=== PATIENT | female | born 1950 | race Caucasian/White ===

== ENCOUNTER 2018-01-09 19:15 | Emergency (ER) | payer OTHER, MEDICARE ==
[2018-01-09 19:33] VITALS: BP 164/78; PULSE 83; TEMP 97.9; BMI 34.3
--- NOTE | 2018-01-09 19:41 | PDOC ---
History of Present Illness - General Chief Complaint: CVA/TIA Stated Complaint: NUMBNESS Time Seen by Provider: 01/09/18 19:35 - History of Present Illness Initial Comments: 01/09/18 20:45 The patient is a 67 year old female with a history of breast ca who presents for evaluation of Lightheadedness, palpitations, and tingling in her upper extremities. The patient reports onset of lightheadedness, palpitations and tingling in her hands 1 hour prior to presentation. The patient reports that she did not "feel right" prompting her presentation to the ED for further evaluation. She otherwise denies fevers, chills, headache, SOB, chest pain, nausea, vomiting, abdominal pain, weakness, numbness, or changes with urination or bowel movements. Past History - Past Medical History Allergies/Adverse Reactions: Allergies Allergy/AdvReac Type Severity Reaction Status Date / Time No Known Allergies Allergy Verified 01/09/18 22:52 Home Medications: Ambulatory Orders NK [No Known Home Medication] 01/09/18 - Suicide/Smoking/Psychosocial Hx Smoking History: Never smoked Have you smoked in the past 12 months: No Information on smoking cessation initiated: No Hx Alcohol Use: No Drug/Substance Use Hx: No Review of Systems - Review of Systems Comments:: 01/09/18 21:07 Constitutional: No fevers, chills, fatigue, malaise HEENT: No Rhinorrhea, nasal congestion, visual changes Cardiovascular: Lightheadedness. Palpitations. No chest pain, syncope, Respiratory: No Cough, SOB, Hemoptysis, Gastrointestinal: No Abdominal pain, Nausea, Vomiting, Constipation, Diarrhea, Melena Genitourinary: No Dysuria, Frequency, Urgency, Hesitancy, Hematuria, Flank pain Musculoskeletal: No Myalgia, arthralgia Skin: No rashes, itching, bruising, pallor Neurologic: Tingling. No Headache, Dizziness, Numbness, Weakness, or Tingling Psychiatric: No Hallucinations. No SI or HI *Physical Exam - Vital Signs Last Vital Signs Temp Pulse Resp BP Pulse Ox 97.9 F 83 18 164/78 99 01/09/18 19:31 01/09/18 19:31 01/09/18 19:31 01/09/18 19:31 01/09/18 19:31 - Physical Exam Comments: 01/09/18 21:09 General Appearance: Nourished. No Apparent Distress HEENT: EOMI, HEIDI. No Pharyngeal Erythema, Tonsillar Exudate, Tonsillar Erythema Neck: No Cervical Lymphadenopathy Respiratory/Chest: Lungs Clear, Normal Breath Sounds. No Crackles, Rales, Rhonchi, Wheezing Cardiovascular: Regular Rhythm, Regular Rate. No Murmur, Gallops, Rubs Gastrointestinal/Abdominal: Normal Bowel Sounds, Soft. No Guarding, Rebound, Tenderness Musculoskeletal: No CVA Tenderness Extremity: Normal Capillary Refill Integumentary: Normal Color, Dry, Warm Neurologic: access nurse II-XII NML intact, Fully Oriented, Alert, Normal Mood/Affect, Normal Response, Motor Strength 5/5. Normal Finger to Nose and Heel to [place] Heart Score/ECG Review #1 ECG reviewed & interpreted by me at: 21:10 General ECG Interpretation: Sinus Rhythm, Normal Rate, Normal Intervals, No acute ischemic changes ED Treatment Course - LABORATORY CBC & Chemistry Diagram: 01/09/18 20:18 01/09/18 20:18 Medical Decision Making - Medical Decision Making 01/09/18 21:10 The patient is a 67 year old female with a history of breast ca who presents for evaluation of Lightheadedness, palpitations, and tingling in her upper extremities. Differential includes but is not limited to: Intracranial process , PE, Arrhythmia, Infectious, Metabolic derangement. Given the patient's history and physical exam, we will obtain a cbc, cmp, head CT, chest CTA to evaluate further for possible etiologies. We will treat with versed here in the ED given the patient's anxiety in enclosed spaces to obtain CT scanning. We will continue to monitor and reassess in the meantime. 01/10/18 00:34 CBC, cmp are unremarkable. head ct and chest cta are unremarkable. Given the patient's symptoms, we recommend admission for neurology evaluation. We discussed the results and plan with the patient who voiced that her symptoms have significantly improved and she would like to leave AMA. We discussed the risks of leaving AMA including but not limited to and permanent disability. The patient continued to wish to leave AMA. We discussed the benefits of admission and the patient continue to wish to leave AMA. The patient signed the AMA form and stated that she would return should she experience any new symptoms and will follow up with a neurologist and her primary care provider. *DC/Admit/Observation/Transfer Diagnosis at time of Disposition: Palpitations, Tingling in extremities, Lightheadedness - Discharge Dispostion Disposition: AGAINST MEDICAL ADVICE Condition at time of disposition: Stable Decision to Admit order: No - Referrals Referrals: Aguilar Robledo MD [Staff Physician] - - Patient Instructions Printed Discharge Instructions: DI for Palpitations Additional Instructions: Please return to the ER if you experience concerning or worsening symptoms including worsening tingling, weakness, headache, vomiting, or chest pain. Your lab results and imagine studies were normal here in the ER. It is extremely important that you call to schedule a follow up appointment with your primary care provider and our neurologist within 2-3 days to discuss your ER visit and further management of your symptoms. - Post Discharge Activity
[2018-01-09] MEDS ORDERED: MIDAZOLAM HCL 2 MG/2 ML SINGLE DOSE VIAL IVPUSH ONE (19:45)
--- NOTE | 2018-01-09 20:10 | PDOC ---
Attending Attestation - Resident Resident Name: SuGildardoDylon - ED Attending Attestation I have performed the following: I have examined & evaluated the patient, The case was reviewed & discussed with the resident, I agree w/resident's findings & plan, Exceptions are as noted - HPI HPI: 01/09/18 20:10 Mr Zaman is a 67 yo F h/o breast cancer who presents to the ER with a complaint of bilateral upper extremity numbness No weakness No paresthesias No prior epsiodes like this No speech changes Pt reports that her thinking is foggy "Something doesn't feel right" When asked if she has numbness on just one side of both, pt states she doesn't know She state she has palpitations She had been working all day and had no difficulties with this This evening, she began feeling "funny" She denies actual chest pain, denies headache No nausea or vomiting 01/09/18 20:52 - Physicial Exam PE: 01/09/18 20:12 GENERAL: The patient is in no acute distress. HEAD: Normal with no signs of trauma. EYES: PERRLA, EOMI, sclera anicteric, conjunctiva clear. NECK: Normal range of motion, supple without lymphadenopathy, JVD, or masses. LUNGS: Breath sounds equal, clear to auscultation bilaterally. HEART:Regular rate and rhythm, normal S1 and S2 without murmur, rub or gallop. ABDOMEN: Soft, nontender, normoactive bowel sounds. EXTREMITIES: Normal range of motion, no edema. No clubbing or cyanosis. No erythema, or tenderness. NEUROLOGICAL: Cranial nerves II through XII grossly intact. Normal speech. No focal neurological deficits - able to hold arms up against gravity for 10 seconds, able to hold legs up against gravity for 5 seconds Right facial asymmetry chronic, related to prior cancer and radiation NML finger to nose Nml rapid alternating movements Heel to hernández nml Ambulation stable SKIN: Warm, Dry, normal turgor, no rashes or lesions noted. 01/09/18 20:50 01/09/18 20:59 - Medical Decision Making Pt presents to the ER with non specific complaints Differential diagnosis includes: TIA, electrolyte abnormlity, anemia, ACS, PE Will do: Labs EKG CT head CTA chest Admit 01/09/18 20:49 Laboratory Tests 01/09/18 20:18 WBC 9.8 Hgb 15.5 H Hct 45.9 H Plt Count 138 01/09/18 21:01 EKG: SR rate of 69 bpm, [place] nml, intervals nml, No st elevations or depressions , t waves upright Pt at CT now 01/09/18 21:19 Laboratory Tests 01/09/18 20:18 Sodium 140 Potassium 3.8 Chloride 106 Carbon Dioxide 25 BUN 15 Creatinine 0.8 Random Glucose 123 H Creatine Kinase 79 Troponin I < 0.02 CT head no acute CVA CTA chest no PE Pt not willing to stay in the hospital Leaving AMA Clinical Impression: lightheadedness, initial presentation Note: The patient insists on leaving the emergency dept and is signing out against medical advice. The patient understands the risks and complications that may result from the refusal of medical care and admission which includes and permanent disability. The patient has the mental capacity of understanding the risks of refusing care and is capable of making an informed decision. The patient was instructed to return to the emergency department should she change her mind regarding medical care or should her condition worsen. The patient signed the Against Medical Advice form.
[2018-01-09 20:24] LABS: BASO % 0.7 % (0-2.0); EOS % 1.4 % (0-4.5); HEMATOCRIT 45.9 % (32.4-45.2); HEMOGLOBIN 15.5 GM/dL (10.7-15.3); LYMPH % 22.2 % (8-40); MCH 31.8 pg (25.7-33.7); MCHC 33.7 g/dl (32.0-36.0); MEAN CELL VOLUME 94.4 fl (80-96); MEAN PLT VOLUME 10.3 fl (7.5-11.1); MONO % 7.3 % (3.8-10.2); NEUT % 68.4 % (42.8-82.8); PLATELET COUNT 138 K/MM3 (134-434); RBC 4.86 M/mm3 (3.60-5.2); RDW 13.5 % (11.6-15.6); WHITE BLOOD COUNT 9.8 K/mm3 (4.0-10.0)
[2018-01-09] MEDS ORDERED: MIDAZOLAM HCL 2 MG/2 ML SINGLE DOSE VIAL ONE (20:53)
[2018-01-09 21:04] LABS: BLOOD UREA NITROGEN 15 mg/dL (7-18); GLUCOSE,RANDOM 123 mg/dL (74-106)
[2018-01-09 21:05] LABS: ALBUMIN 3.7 g/dl (3.4-5.0); ALK PHOS 98 U/L (45-117); ANION GAP 9 (8-16); BILIRUBIN,TOTAL 0.4 mg/dL (0.2-1.0); CALCIUM 8.8 mg/dL (8.5-10.1); CHLORIDE 106 mmol/L (98-107); CO2 25 mmol/L (21-32); CREATININE 0.8 mg/dL (0.55-1.02); POTASSIUM 3.8 mmol/L (3.5-5.1); SGOT/AST 22 U/L (15-37); SGPT/ALT 27 U/L (12-78); SODIUM 140 mmol/L (136-145); TOT PROT 7.4 g/dl (6.4-8.2)
[2018-01-09] MEDS ORDERED: LORazepam 2 MG/ML SDV VIAL ONE (21:40)
--- NOTE | 2018-01-10 13:39 | EKG ---
Test Reason : Blood Pressure : / mmHG Vent. Rate : 069 BPM Atrial Rate : 069 BPM P-R Int : 142 ms QRS Dur : 078 ms QT Int : 386 ms P-R-T Axes : 028 003 024 degrees QTc Int : 413 ms NORMAL SINUS RHYTHM NORMAL ECG NO PREVIOUS ECGS AVAILABLE Confirmed by MD Alfred, Román ([id number]) on 01/10/2018 1:38:58 PM Referred By: Confirmed By:Román Simon MD
== END 2018-01-10 00:52 | disposition left against medical advice (07) ==
LOC: JER 19:15 → SUPCPDRO 19:15 → JER 01-10 00:52
PROC: 3E033NZ Introduction of Analgesics, Hypnotics, Sedatives into Peripheral Vein, Percutaneous Approach (ICD-10-PCS; principal; 2018-01-09)
PROC: 3E033NZ Introduction of Analgesics, Hypnotics, Sedatives into Peripheral Vein, Percutaneous Approach (ICD-10-PCS; 2018-01-09)
DX: R00.2 Palpitations (principal); R42 Dizziness and giddiness
CPT/HCPCS: 36415; 70450-TC; 71275-TC; 80053; 82550; 84484; 85025; 93005; 93010; 96374; 96375; 99282-25

== ENCOUNTER → 2021-01-22 | Day surgery (SDC) | payer OTHER, MEDICARE | END | disposition home or self-care (01) | LOC: FRADUS-SUR 12:30 → FRAD 12:30 → EDSTATUS 13:15 | PROVIDERS: ATTEND Specialist | PROC: 0HBT3ZX Excision of Right Breast, Percutaneous Approach, Diagnostic (ICD-10-PCS; principal; 2021-01-22) | DX: C50.811 Malignant neoplasm of overlapping sites of right female breast (principal); Z17.0 Estrogen receptor positive status [ER+]; R92.8 Other abnormal and inconclusive findings on diagnostic imaging of breast | CPT/HCPCS: 19083; 76642-TC-RT; 77065-TC; 88305-TC; 88342-TC; G0279-TC ==